=== PATIENT | male | born 1985 | race Caucasian/White ===

== ENCOUNTER 2025-08-02 19:29 | Emergency (ER) | payer OTHER, BC, SELFPAY ==
[2025-08-02 19:29] VITALS: BP 160/85; PULSE 86; RESP 16; TEMP 36.6; O2SAT 99; BMI 24.3
[2025-08-02] MEDS: Lidocaine 1% (20 ml mdv) 20 ML Vial INFILT (20:46)
--- NOTE | 2025-08-02 21:47 | EX.ED.DYSGE1 ---
HPI History of Present Illness Chief Complaint: Bite Detail of Chief Complaint: Tach White with remains left lateral chest between the anterior and posteri Informant: patient Onset/Context/Timing Onset: Today (Noticed today) Quality: attempted to remove the tech. She was unsuccessful. Location: Lateral left chest Current Severity: Not applicable Maximum Severity: Not applicable Worsened by: Not applicable Relieved by: Not applicable Associated Symptoms Associated Symptoms: None Narrative Narrative: Patient is a 39-year-old male. He was hunting deer this weekend. When he went home he noted he had a tick on his left lateral chest. attempted to remove. She removed the body but the head remains. He presents to have the head removed. He has no symptoms. He denies myalgias arthralgias. He denies rash. Prior similar symptoms: No Recent Illness/Hospitalization: No PFSH PFSH Medical History no medical history no medical history Home Medications ?Medication ?Instructions ?Recorded ?Last Taken ?Type No Known/Unobtainable [No Known 05/15/15 Unknown History Home Medications] Allergy/AdvReac Type Severity Reaction Status Date / Time No Known Allergies Allergy Verified 08/02/25 19:32 Social History (Updated 08/02/25 @ 21:[address] Mik Pham MD) household members: spouse and children Smoking Status: Unknown if ever smoked ROS ROS ED Constitutional Constitutional ED: Denies chills, fever(s) or sweats Musculoskeletal Musculoskeletal: Denies arthralgias or myalgias Integumentary Denies rash Hematologic/Lymphatic Hematologic/Lymphatic: Reports systems reviewed and no addt'l complaints, except as documented EXAM Physical Exam Const Vital Signs: 08/02/25 19:29 Temperature 97.9 F Temperature Source Oral Pulse Rate 86 Respiratory Rate 16 Blood Pressure 160/85 H Blood Pressure Mean 110 Pulse Ox 99 Oxygen Delivery Method Room Air Positive well nourished HEENT Reports moist mucous membranes Eyes PERRL and EOMs intact bilaterally Chest Wall palpation of chest normal; Negative for inspection of chest normal Chest Narrative: Remanence of tick head Resp normal respiratory effort Cardio regular rate and regular rhythm Extremity normal to inspection Neuro oriented x3 and CN's II-XII intact bilaterally Sensorium / Orientation: alert Psych mental status grossly normal Skin Skin Narrative: Findings consistent with remains of tech that was unsuccessfully removed Procedures Other Procedures Procedure(s): Area was anesthetized. Using Selena clamp the head was removed in total. Will obtain blood work for Lyme's Discharge Plan Triage Chief Complaint: Bite ED Provider: Mik Pham Dx/Rx/DC Orders Clinical Impression: Tick bite with subsequent removal of tick Instructions: ED Tick Facts, ED Tick Bite, No Abx Tx Prescriptions: No Action No Known Home Medications Primary Care Provider: Care Physician,No Primary Referrals: Care Physician,No Primary [Primary Care Provider, Medical] Activity Restrictions/Additional Instructions: Follow-up with your doctor as needed. If your Lyme titer is positive you will be contacted by the emergency department and placed on antibiotics. Print Language: Bulgarian Disposition Disposition: Home, Self Care
[2025-08-02 22:02] VITALS: BP 160/85; PULSE 86; RESP 16; TEMP 36.6; O2SAT 99
[2025-08-04 14:09] LABS: Lyme Scn Total Ab w/Rflx Negative (Negative)
== END 2025-08-02 22:02 | disposition home or self-care (01) ==
PROVIDERS: Emergency Provider Emergency Medicine; Visit Provider Emergency Medicine
DX: S20.362A Insect bite (nonvenomous) of left front wall of thorax, initial encounter (principal); W57.XXXA Bitten or stung by nonvenomous insect and other nonvenomous arthropods, initial encounter; Y93.59 Activity, other involving other sports and athletics played individually
CPT/HCPCS: 86618; 99282